=== PATIENT | male | born 1970 | race African-American/Black ===

== ENCOUNTER 2016-05-27 09:53 | Emergency (ER) | payer OTHER ==
[~2016-05-27] VITALS: Ht 182.9 cm; Wt 120.0 kg
[~2016-05-27 09:53] MED LIST: ERYT.5%O LEFT EYE; Z.0.NO CURRENT MEDS
[2016-05-27 09:55] VITALS: BP 176/115; PULSE 66; RESP 12; TEMP 98; O2SAT 97
[2016-05-27] MEDS ORDERED: ASPI81TA81 (10:56)
[2016-05-27] MEDS ORDERED: ASPI-110 PO (10:56)
[2016-05-27] MEDS ORDERED: HYDR12.57 PO (10:56)
[2016-05-27] MEDS ORDERED: LISI40TA PO (10:56)
[2016-05-27] MEDS ORDERED: KETOROLAC TROMETHAMINE 60 MG/2 ML (IM) VIAL IM ONE (11:00)
[2016-05-27] MEDS ORDERED: INDO50CA PO (11:22)
--- NOTE | 2016-05-27 11:22 | PD ---
HPI Chief Complaint: Injury Time Seen by Provider: 10:45 Travel History International Travel<30 days: No Contact w/Intl Traveler<30days: No Traveled to known affect area: No History of Present Illness HPI 45-year-old male with history of gout presents to the emergency room for evaluation of right ankle pain and swelling for the past 3 days. Denies trauma or injury. States it feels similar to, though slightly worse than, last time he had the symptoms. At that time it was in his left great toe. Pain is worsened with any range of motion or ambulation. Localized to the right medial malleolus. Denies paresthesias. Patient denies calf pain, fever, chills, nausea, and vomiting. Patient drinks beer daily. He ate shrimp on the day that the pain started. PFSH Past Medical History High Cholesterol: Yes Diminished Hearing: No Hypertension: Yes Tetanus Vaccination: Never Vaccinated Social History Alcohol Use: Yes (2-3 BEERS PER DAY) Tobacco Use: Yes (CIGARS) Substance Use: No Allergies-Medications (Allergen,Severity, Reaction): Coded Allergies: No Known Allergies (Verified , 05/27/16) Reported Meds & Prescriptions Reported Meds & Active Scripts Active Reported Aspirin 81 (Aspirin) 81 Mg Tabdr 81 Mg PO DAILY Aspir-81 (Aspirin) 81 Mg Tabdr Hydrochlorothiazide 12.5 Mg Cap 12.5 Mg PO DAILY Lisinopril 40 Mg Tab 40 Mg PO DAILY Review of Systems Except as stated in HPI: all other systems reviewed are Neg Physical Exam Narrative GENERAL: Well-nourished, well-developed male in no acute distress. Afebrile. Ambulatory with a limp. SKIN: Warm and dry. No erythema or ecchymosis. HEAD: Normocephalic. EYES: No scleral icterus. No injection or drainage. NECK: Supple, trachea midline. No JVD or lymphadenopathy. CARDIOVASCULAR: Regular rate and rhythm without murmurs, gallops, or rubs. RESPIRATORY: Breath sounds equal bilaterally. No accessory muscle use. EXTREMITY: Right ankle moderately tender to palpation over the medial malleolus. Full range of motion in all joints. Mild to moderate 2+ pitting edema. 2+ dorsalis pedis pulse. Data Data Last Documented VS Vital Signs Date Time Temp Pulse Resp B/P Pulse Ox O2 Delivery O2 Flow Rate FiO2 05/27/16 09:55 98.0 66 12 176/115 97 Room Air Orders Ketorolac Inj (Toradol Inj) (05/27/16 11:00) [facility] Medical Decision Making Medical Screen Exam Complete: Yes Emergency Medical Condition: Yes Medical Record Reviewed: Yes Differential Diagnosis Gout flareup versus sprain versus strain Narrative Course 45-year-old male with a history of podagra presents to the emergency room for evaluation of right ankle pain and swelling for the past 3 days. Denies trauma or injury. There is 2+ pitting edema and moderate tenderness palpation of the right medial ankle. No calf tenderness. Neurovascularly intact with 2+ dorsalis pedis pulse. No indication for x-ray imaging. Patient has full range of motion and there is no erythema or significantly increased warmth; no concern for septic arthritis. He drinks alcohol daily and ate shrimp on the day the pain began; likely gout flare. He was given Toradol in the emergency room. Discharged with indomethacin and told to follow up with primary care physician or return for worsening symptoms. He understands and agrees to plan. Diagnosis Primary Impression: Gout flare Qualified Code: M10.9 - Acute gout of right ankle, unspecified cause Referrals: Primary Care Physician Patient Instructions: General Instructions, Gout (ED) Additional Instructions: Rest and drink plenty of fluids. Take indomethacin with food as directed, as needed for pain. Apply ice to the affected area for 20 minutes at a time, as needed for pain and swelling. Follow-up with a primary care physician. Return to the emergency room for worsening symptoms. Med/Other Pt SpecificInfo: Prescription(s) given Disposition: 01 DISCHARGE HOME Condition: Stable Sultana Corona May 27, 2016 11:22
[2016-05-27 12:02] VITALS: BP 166/88
== END 2016-05-27 12:03 | disposition home or self-care (01) ==
LOC: NEPB 09:53
DX: M10.9 Gout, unspecified (principal); E78.00 Pure hypercholesterolemia, unspecified; I10 Essential (primary) hypertension; F10.20 Alcohol dependence, uncomplicated; F17.290 Nicotine dependence, other tobacco product, uncomplicated
CPT/HCPCS: 96372; 99283; J1885

== ENCOUNTER 2016-06-09 11:16 | Observation (INO) | payer OTHER ==
[~2016-06-09] VITALS: Ht 182.9 cm; Wt 120.0 kg
[~2016-06-09 11:16] MED LIST changes: +ASPI-110 PO; +ASPI81TA81; -ERYT.5%O LEFT EYE; +HYDR12.57 PO; +INDO50CA PO; +LISI40TA PO; -Z.0.NO CURRENT MEDS
[2016-06-09 11:18] VITALS: BP 123/75; PULSE 75; RESP 16; TEMP 99; O2SAT 97
--- NOTE | 2016-06-09 12:53 | PD ---
HPI Chief Complaint: Allergic/Adverse Reaction Time Seen by Provider: 12:50 Travel History International Travel<30 days: No Contact w/Intl Traveler<30days: No Traveled to known affect area: No History of Present Illness HPI 45-year-old male with history of hypertension presents to the emergency department for evaluation of swelling of his lips and face for 1 day. Patient states the last night when he went to bed he had no swelling at all and when he woke up this morning his lips and the lower half of his face were swollen. He denies any pain in his face or pruritus. He denies any swelling of his tongue, difficulty swallowing, difficulty breathing. He does admit to taking a new medication last week prescribed for gout, indomethacin. Otherwise the patient takes lisinopril/HCTZ for high blood pressure. He has been taking lisinopril for 2 years, states he initially did have a dry cough associated with the medication that resolved. Denies any other changes in diet, medications or topical products. The patient also complains of right hand swelling and pain. States that 4 days ago he was using a miter saw and accidentally cut the dorsal aspect of his right hand less than 1 cm. States that it was a small cut and he assumed it would heal on its own. States that he has had worsening swelling, redness and pain in the hand since this occurred. He absolutely denies any injury or trauma secondary to punching someone in the face. States that last night he began having drainage from the wound as well. States that he had subjective fever yesterday and body aches. Denies cough or cold symptoms, chest pain, shortness of breath, lightheadedness, dizziness, numbness or tingling, weakness. No other complaints. Unsure of last tetanus vaccination. PFSH Past Medical History High Cholesterol: Yes Diminished Hearing: No Hypertension: Yes Social History Alcohol Use: Yes (2-3 BEERS PER DAY) Tobacco Use: Yes (CIGARS) Substance Use: No Allergies-Medications (Allergen,Severity, Reaction): Coded Allergies: No Known Allergies (Verified , 06/09/16) Reported Meds & Prescriptions Reported Meds & Active Scripts Active Indomethacin 50 Mg Cap 50 Mg PO Q8HR 7 Days Take with food, milk, or antacids to decrease stomach adverse effects. Reported Aspirin 81 (Aspirin) 81 Mg Tabdr 81 Mg PO DAILY Hydrochlorothiazide 12.5 Mg Cap 12.5 Mg PO DAILY Lisinopril 40 Mg Tab 40 Mg PO DAILY Review of Systems Except as stated in HPI: all other systems reviewed are Neg Physical Exam Narrative GENERAL: Well-nourished and well-developed pleasant male patient in no acute distress. SKIN: Warm and dry. HEAD: Normocephalic and atraumatic. EYES: No injection, drainage, or hyphema noted. PERRLA. EOMI. ENT: No nasal drainage noted. There is swelling of the lips, specifically the lower lip. Mild swelling of the cheeks. No swelling of the tongue. Oropharynx is clear and the airway is patent. Patient handling secretions without difficulty. NECK: Supple and the trachea is midline. CARDIOVASCULAR: Regular rate and rhythm. RESPIRATORY: Breath sounds are equal bilaterally with no accessory muscle use, wheezing, rhonchi, or crackles. GASTROINTESTINAL: Abdomen is soft, non-tender, and nondistended. EXTREMITY: Right hand with less than 1 cm superficial laceration to dorsal aspect overlying second MCP. There is a small amount of purulent drainage expelled from this superficial laceration. There is surrounding erythema, warmth and swelling. Full range of motion in all joints. No joint swelling/ injury. Normal opposition of thumb. Distal extremity neurovascularly intact with intact two point discrimination. MUSCULOSKELETAL: No obvious deformities, swelling, cyanosis, or ecchymosis is present throughout the upper and lower extremities. Patient has full range of motion without any signs of neurovascular compromise. NEUROLOGICAL: Awake, alert, and oriented. Normal speech and gait. Cranial nerves are grossly intact. Data Data Last Documented VS Vital Signs Date Time Temp Pulse Resp B/P Pulse Ox O2 Delivery O2 Flow Rate FiO2 06/09/16 13:01 68 16 133/78 98 06/09/16 11:18 99.0 Orders Complete Blood Count With Diff (06/09/16 12:48) Comprehensive Metabolic Panel (06/09/16 12:48) Lactic Acid Sepsis Protocol (06/09/16 12:48) Blood Culture (06/09/16 12:48) Ecg Monitoring (06/09/16 12:48) Iv Access Insert/Monitor (06/09/16 12:48) Oximetry (06/09/16 12:48) C-Reactive Protein (Crp) (06/09/16 12:48) Westergren Sedimentation Rate (06/09/16 12:48) Diphenhydramine Inj (Benadryl Inj) (06/09/16 13:00) Methylprednisolone So Succ Inj (Solumedr (06/09/16 13:00) Famotidine Inj (Pepcid Inj) (06/09/16 13:00) Sodium Chloride 0.9% Flush (Ns Flush) (06/09/16 13:00) Hand, Complete (Omi1uud) (06/09/16 12:48) Wound Culture And Gram Stain (06/09/16 12:53) Tetanus/Diphtheria Tox Adult (Tetanus/Di (06/09/16 13:00) Ct Hand W Iv Contrast (06/09/16 ) Vancomycin Inj (Vancomycin Inj) (06/09/16 14:00) Piperacil-Tazo 4.5 Gm Premix (Zosyn 4.5 (06/09/16 14:00) Sodium Chlor 0.9% 1000 Ml Inj (Ns 1000 M (06/09/16 13:50) Iohexol 350 Inj (Omnipaque 350 Inj) (06/09/16 14:50) Admit Order (Ed Use Only) (06/09/16 15:46) Labs Laboratory Tests Test 06/09/16 12:55 White Blood Count 13.9 TH/MM3 Red Blood Count 5.10 MIL/MM3 Hemoglobin 13.9 GM/DL Hematocrit 42.3 % Mean Corpuscular Volume 82.9 FL Mean Corpuscular Hemoglobin 27.3 PG Mean Corpuscular Hemoglobin 32.9 % Concent Red Cell Distribution Width 13.9 % Platelet Count 295 TH/MM3 Mean Platelet Volume 7.7 FL Neutrophils (%) (Auto) 78.5 % Lymphocytes (%) (Auto) 13.1 % Monocytes (%) (Auto) 7.6 % Eosinophils (%) (Auto) 0.5 % Basophils (%) (Auto) 0.3 % Neutrophils # (Auto) 10.9 TH/MM3 Lymphocytes # (Auto) 1.8 TH/MM3 Monocytes # (Auto) 1.1 TH/MM3 Eosinophils # (Auto) 0.1 TH/MM3 Basophils # (Auto) 0.0 TH/MM3 CBC Comment DIFF FINAL Differential Comment Erythrocyte Sedimentation Rate 41 mm/hr Sodium Level 135 MEQ/L Potassium Level 3.4 MEQ/L Chloride Level 97 MEQ/L Carbon Dioxide Level 29.2 MEQ/L Anion Gap 9 MEQ/L Blood Urea Nitrogen 15 MG/DL Creatinine 1.26 MG/DL Estimat Glomerular Filtration 74 ML/MIN Rate Random Glucose 91 MG/DL Lactic Acid Level 0.9 mmol/L Calcium Level 8.8 MG/DL Total Bilirubin 0.6 MG/DL Aspartate Amino Transf 23 U/L (AST/SGOT) Alanine Aminotransferase 41 U/L (ALT/SGPT) Alkaline Phosphatase 91 U/L C-Reactive Protein 14.00 MG/DL Total Protein 8.9 GM/DL Albumin 3.6 GM/DL [facility] Medical Decision Making Medical Screen Exam Complete: Yes Emergency Medical Condition: Yes Differential Diagnosis Allergic reaction versus angioedema versus cellulitis versus abscess versus other Narrative Course 45-year-old male presents to the emergency department for 2 separate complaints right hand swelling and redness with drainage for 4 days and lip and face swelling for 1 day. Patient has a low-grade temperature of 99F, otherwise vital signs are stable. The hand does appear to be infected with a little bit of drainage. A wound culture was obtained and sent to the lab. The patient does have swelling of the lips and face however the airway is patent and he is having no drooling or difficulty breathing. I suspect the patient is having angioedema secondary to lisinopril. IV access is obtained, labs have been drawn and sent. Patient is given Benadryl 25 mg IV, Solu-Medrol 125 mg IV and Pepcid 50 mg IV. X-ray of the hand has been ordered and is pending. CBC shows an elderly white blood cell count 13.9. ESR is elevated at 41. CMP is unremarkable. CRP is elevated at 14. Lactic acid is 0.9. X-ray of the right hand is negative for any acute abnormalities. CT of the right hand with IV contrast shows soft tissue swelling with no fluid collection. Patient reassessed and the swelling in his lips has improved with the Benadryl, Solu-Medrol and Pepcid. Patient continues to have no swelling of the tongue or throat, no difficulty breathing or swallowing, airway is patent and he is handling secretions without difficulty. Patient will be admitted for IV antibiotics for right hand cellulitis and angioedema. I discussed the case with my attending physician Dr. Roberts Who is aware of the patients history, physical examination findings, and treatment plan. Physician Communication Physician Communication Patient was seen by Dr. Banuelos, hand surgeon, who agrees with IV antibiotics and requests hand to be elevated. No surgical intervention at this time. My attending physician Dr. Roberts spoke with Dr. Karey MORIN who agrees to admit the patient to his service. Diagnosis Primary Impression: Cellulitis of right hand Admitting Information Admitting Physician Requests: Admit Suzanne Conway Jun 09, 2016 12:53
[2016-06-09] MEDS ORDERED: FAMOTIDINE 20 MG/2 ML VIAL IV PUSH ONE (13:00)
[2016-06-09] MEDS ORDERED: SODIUM CHLORIDE 0.9% FLUSH 5 ML FLUSH IVF PRN (13:00)
[2016-06-09] MEDS ORDERED: TETANUS/DIPHTHERIA TOXOID ADULT 0.5 ML VIAL IM ONE (13:00)
[2016-06-09] MEDS ORDERED: methylPREDNISolone SOD SUCC 125 MG/2 ML VIAL IVP ONE (13:00)
[2016-06-09] MEDS ORDERED: diphenhydrAMINE HCL 50 MG/ML VIAL IVP ONE (13:00)
[2016-06-09 13:01] VITALS: BP 133/78; PULSE 68; RESP 16; O2SAT 98
[2016-06-09 13:20] LABS: AUTOMATED NEUTROPHIL # 10.9 TH/MM3 (1.8-7.7); BASOPHIL % 0.3 % (0.0-2.0); EOSINOPHIL # 0.1 TH/MM3 (0-0.4); EOSINOPHIL % 0.5 % (0.0-4.0); HEMATOCRIT 42.3 % (39.0-51.0); HEMO FLAGS DIFF FINAL; LYMPH % 13.1 % (9.0-44.0); LYMPHOCYTE # 1.8 TH/MM3 (1.0-4.8); MEAN CELL VOLUME 82.9 FL (80.0-100.0); MEAN CORPUSCULAR HEMOGLOBIN 27.3 PG (27.0-34.0); MEAN CORPUSCULAR HGB CONC 32.9 % (32.0-36.0); MONO % 7.6 % (0.0-8.0); NEUT % 78.5 % (16.0-70.0); PLATELET COUNT 295 TH/MM3 (150-450); RED CELL DISTRIBUTION WIDTH 13.9 % (11.6-17.2); WHITE BLOOD COUNT 13.9 TH/MM3 (4.0-11.0)
--- NOTE | 2016-06-09 13:29 | RADRPT ---
EXAM DATE/TIME: 06/09/2016 13:27 [facility] COMPARISON: No previous studies available for comparison. INDICATIONS : Pain and Swelling after patient accidentally cut back of Right hand, base of 2nd digit. MEDICAL HISTORY : None. SURGICAL HISTORY : None. ENCOUNTER: Initial ACUITY: 1 day PAIN SCORE: 5/10 LOCATION: Right Hand. FINDINGS: Three view examination of the right hand demonstrates no soft tissue swelling, dislocation, or fractu re. The carpal bones appear intact. The interphalangeal and metacarpophalangeal joints are intact. Bony mineralization is normal. CONCLUSION: Unremarkable examination of the right hand. Blayne Hernandez MD on June 09, 2016 at 13:28 Board Certified Radiologist. This report was verified electronically.
[2016-06-09 13:38] LABS: ANION GAP 9 MEQ/L (5-15); AST (GOT) 23 U/L (15-37); BICARBONATE 29.2 MEQ/L (21.0-32.0); BLOOD UREA NITROGEN 15 MG/DL (7-18); CHLORIDE 97 MEQ/L (98-107); GLOMERULAR FILTRATION RATE 74 ML/MIN (>89); POTASSIUM 3.4 MEQ/L (3.5-5.1); SODIUM (NA) 135 MEQ/L (136-145)
[2016-06-09 13:41] LABS: ALKALINE PHOSPHATASE 91 U/L (45-117); ALT (GPT) 41 U/L (12-78); TOTAL BILIRUBIN ADULT 0.6 MG/DL (0.2-1.0)
[2016-06-09] MEDS ORDERED: SODIUM CHLOR 0.9% 1000 ML INJ 1,000 ML IV SCH (13:50)
[2016-06-09] MEDS ORDERED: VANCOMYCIN INJ 1,000 MG in SODIUM CHLOR 0.9% 250 ML INJ 250 ML IV ONE (14:00)
[2016-06-09] MEDS ORDERED: PIPERACIL-TAZO 4.5 GM PREMIX 100 ML IV ONE (14:00)
--- NOTE | 2016-06-09 14:47 | RADRPT ---
EXAM DATE/TIME: 06/09/2016 14:25 [facility] COMPARISON: No previous studies available for comparison. INDICATIONS : Evaluate for abscess. IV CONTRAST: 92 cc Omnipaque 350 (iohexol) IV RADIATION DOSE: 5.47 CTDIvol (mGy) MEDICAL HISTORY : None SURGICAL HISTORY : None. ENCOUNTER: Initial ACUITY: 1 day PAIN SCALE: 4/10 LOCATION: Right hand TECHNIQUE: Volumetric scanning of the hand was performed. Using automated exposure control and adjustment of th e mA and/or kV according to patient size, radiation dose was kept as low as reasonably achievable to obtain optimal diagnostic quality images. FINDINGS: BONES: No evidence of fracture. Alignment is within normal limits. JOINTS: No evidence of joint narrowing or effusion. SOFT TISSUES: Muscles, tendons, and neurovascular structures are grossly unremarkable. No evidence of mass, organiz ed fluid collection, or foreign body. Significant soft tissue swelling of the dorsum of the hand CONCLUSION: Normal examination except for significant soft tissue swelling in the dorsum of the hand. Blayne Hernandez MD on June 09, 2016 at 14:44 Board Certified Radiologist. This report was verified electronically.
[2016-06-09] MEDS ORDERED: IOHEXOL 350 MG/ML 10 ML VIAL (for RAD DIAG) IV ONE (14:50)
[2016-06-09] MEDS ORDERED: NALOXONE HCL 0.4 MG/ML AMP IV PRN (15:45)
[2016-06-09] MEDS ORDERED: SODIUM CHLORIDE 0.9% FLUSH 5 ML FLUSH FLUSH PRN (15:45)
[2016-06-09 16:00] VITALS: BP 120/66; PULSE 67; RESP 16; O2SAT 99
[2016-06-09] MEDS ORDERED: Vancomycin Consult Pharmacy 1 EA XX SCH (16:00)
[2016-06-09] MEDS ORDERED: ACETAMINOPHEN/HYDROcodone 325 MG/7.5 MG TAB PO PRN (17:00)
[2016-06-09] MEDS ORDERED: ONDANSETRON HCL 4 MG/2 ML VIAL IVP PRN (17:00)
[2016-06-09] MEDS ORDERED: ACETAMINOPHEN 325 MG TAB PO PRN (17:00)
[2016-06-09] MEDS: PIPERACIL-TAZO 4.5 GM PREMIX 100 ML IV SCH ×2 (18:20→22:49)
[2016-06-09] MEDS: SODIUM CHLOR 0.9% 1000 ML INJ 1,000 ML IV SCH (18:21)
[2016-06-09 19:42] VITALS: BP 118/66; PULSE 71; RESP 21; TEMP 97.8; O2SAT 97
[2016-06-09] MEDS: FAMOTIDINE 20 MG TAB PO SCH (20:59)
[2016-06-09] MEDS: INDOMETHACIN 50 MG CAP PO SCH (20:59)
[2016-06-09] MEDS: SODIUM CHLORIDE 0.9% FLUSH 5 ML FLUSH FLUSH SCH (20:59)
[2016-06-09] MEDS ORDERED: methylPREDNISolone SOD SUCC 40 MG/1 ML VIAL IV PUSH SCH (21:00)
[2016-06-10] VITALS (9 sets, daily range): BP systolic 121–168; BP diastolic 67–98; PULSE 51–81; RESP 18–21; TEMP 96–99.5; O2SAT 96–99
[2016-06-10] MEDS: SODIUM CHLOR 0.9% 1000 ML INJ 1,000 ML IV SCH ×3 (02:00→22:58)
[2016-06-10] MEDS ORDERED: VANCOMYCIN INJ 1,250 MG in SODIUM CHLOR 0.9% 250 ML INJ 250 ML IV SCH (03:00)
[2016-06-10 04:19] LABS: AUTOMATED NEUTROPHIL # 13.6 TH/MM3 (1.8-7.7); BASOPHIL % 0.1 % (0.0-2.0); HEMATOCRIT 41.1 % (39.0-51.0); HEMO FLAGS DIFF FINAL; LYMPH % 6.7 % (9.0-44.0); MEAN CELL VOLUME 82.6 FL (80.0-100.0); MEAN CORPUSCULAR HEMOGLOBIN 27.5 PG (27.0-34.0); MEAN CORPUSCULAR HGB CONC 33.3 % (32.0-36.0); MONO % 2.3 % (0.0-8.0); NEUT % 90.9 % (16.0-70.0); PLATELET COUNT 284 TH/MM3 (150-450); RED BLOOD COUNT 4.97 MIL/MM3 (4.50-5.90)
[2016-06-10 04:50] LABS: BICARBONATE 27.8 MEQ/L (21.0-32.0); POTASSIUM 4.4 MEQ/L (3.5-5.1)
[2016-06-10] MEDS: PIPERACIL-TAZO 4.5 GM PREMIX 100 ML IV SCH ×4 (05:00→22:59)
[2016-06-10] MEDS: INDOMETHACIN 50 MG CAP PO SCH ×3 (05:41→21:53)
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
[2016-06-10] MEDS ORDERED: DEXAMETHASONE 4 MG TAB PO SCH (09:00)
[2016-06-10] MEDS: FAMOTIDINE 20 MG TAB PO SCH ×2 (09:36→21:53)
[2016-06-10] MEDS: SODIUM CHLORIDE 0.9% FLUSH 5 ML FLUSH FLUSH SCH ×2 (09:36→21:00)
[2016-06-10] MEDS: ASPIRIN EC 81 MG TABEC PO SCH (09:36)
[2016-06-10] MEDS: HYDROCHLOROTHIAZIDE 12.5 MG CAP PO SCH (09:36)
[2016-06-10] MEDS ORDERED: Vancomycin Consult Pharmacy 1 EA OTHER SCH (10:30)
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
[2016-06-11 01:05] VITALS: BP 151/78; PULSE 86; RESP 18; TEMP 98.4; O2SAT 97
[2016-06-11] MEDS ORDERED: PHARMACY ORDERED LAB XX ONE (02:45)
[2016-06-11] MEDS: PIPERACIL-TAZO 4.5 GM PREMIX 100 ML IV SCH ×2 (05:51→09:51)
[2016-06-11] MEDS: INDOMETHACIN 50 MG CAP PO SCH (05:51)
[2016-06-11 06:50] VITALS: BP 141/62; PULSE 68; RESP 18; TEMP 98.8; O2SAT 98
--- NOTE | 2016-06-11 08:17 | HHI.PR ---
Subjective Remarks right hand swelling improved, no drainage from laceration no erythema no fever no cp no sob no facial swelling Objective Objective Results - Vital Signs Date Time Temp Pulse Resp B/P Pulse Ox O2 Delivery O2 Flow Rate FiO2 06/11/16 06:50 98.8 68 18 141/62 98 06/11/16 01:05 98.4 86 18 151/78 97 06/10/16 20:00 60 06/10/16 19:20 97.8 69 18 161/98 96 06/10/16 19:19 53 06/10/16 16:00 99.5 57 20 160/93 96 06/10/16 12:00 96.0 60 20 139/76 97 I/O 06/10/16 06/10/16 06/10/16 06/11/16 06/11/16 06/11/16 07:00 15:00 23:00 07:00 15:00 23:00 Intake Total 720 ml Balance 720 ml Intake Oral 720 ml # Voids 3 3 # Bowel Movements 1 Result Diagram: 06/10/16 0401 06/10/16 0401 Imaging Last Impressions Hand X-Ray 06/09/16 1248 Signed Impressions: Service Date/Time: Thursday, June 09, 2016 13:27 - CONCLUSION: Unremarkable examination of the right hand. Blayne Hernandez MD Upper Extremity CT 06/09/16 0000 Signed Impressions: Service Date/Time: Thursday, June 09, 2016 14:25 - CONCLUSION: Normal examination except for significant soft tissue swelling in the dorsum of the hand. Blayne Hernandez MD Other Results Laboratory Tests Test 06/11/16 02:38 Vancomycin Level Trough 3.3 Date/Time Procedure Status Source Growth 06/09/16 14:46 Gram Stain - Final Resulted Wound Hand 06/09/16 14:46 Wound Culture - Preliminary Resulted Group A Beta Strep 06/09/16 13:00 Aerobic Blood Culture - Preliminary Resulted Blood Peripheral NO GROWTH IN 1 DAY 06/09/16 13:00 Anaerobic Blood Culture - Preliminary Resulted Blood Peripheral NO GROWTH IN 1 DAY ROS General: No: Fatigue, Weakness HEENT: No: Sore Throat, Dysphagia Cardiac: No: Chest Pain, Edema, Palpitations Pulmonary: No: Cough, SOB, Wheezing GI: No: Abdominal Pain, BM, Diarrhea, N/V /[employer]: No: Dysuria, Urgency Neuro/MS: Other (right hand swelling improved ), No: Lightheaded, Confusion Psych: No: Anxiety, Depression Skin: No: Itching, Rash Physical Exam Physical Exam GENERAL: This is a well-nourished, well-developed patient, in no apparent distress. SKIN: No rashes, ecchymoses or lesions. Cool and dry. HEAD: Atraumatic. Normocephalic. No temporal or scalp tenderness. EYES: Pupils equal round and reactive. Extraocular motions intact. No scleral icterus. No injection or drainage. ENT: Nose without bleeding, purulent drainage or septal hematoma. Throat without erythema, tonsillar hypertrophy or exudate. Uvula midline. Airway patent. NECK: Trachea midline. No JVD or lymphadenopathy. Supple, nontender, no meningeal signs. CARDIOVASCULAR: Regular rate and rhythm without murmurs, gallops, or rubs. RESPIRATORY: Clear to auscultation. Breath sounds equal bilaterally. No wheezes , rales, or rhonchi. GASTROINTESTINAL: Abdomen soft, non-tender, nondistended. No hepato-splenomegaly , or palpable masses. No guarding. MUSCULOSKELETAL: Right hand with mild swelling, has a 1 cm laceration to dorsal aspect overlying second MCP. No purulent drainage noted. Minimal erythema to surrounding area. Intact sensation right hand, right radial pulse 2+, able to make fist. Other extremities without clubbing, cyanosis, or edema. No joint tenderness, effusion, or edema noted. No calf tenderness. Negative Homans sign bilaterally. NEUROLOGICAL: Awake and alert. Cranial nerves II through XII intact. Motor and sensory grossly within normal limits. Five out of 5 muscle strength in all muscle groups. Normal speech. Urinary Catheter: No Vascular Central Line Catheter: No A/P Diagnosis: (1) Cellulitis of right hand (2) Hypertension (3) Facial swelling (4) Adverse reaction to LUKE inhibitor drug (5) Acute renal insufficiency Assessment and Plan 45 year AA presented to ED with lower facial swelling, poss. secondary to Lisinopril use. -Lisinopril has been discontinued, pt. instructed to stop taking medication at home -symptoms improved, dc Decadron -Continue Pepcid, Benadryl PRN -Monitor for any stridor, facial swelling, respiratory difficulty-has remained stable overnight. Right hand cellulitis -continue with IV antibiotics -Culture group A beta strep -Keep right arm elevated -Consulted Dr. Banuelos-input appreciated. No surgical intervention required, recommends wash hand 4-5 x times a day, dry dressing, PO abx. Acute renal insufficiency, received Vanco, was on LUKE -Continue IVF -Stopped Vancomycin -BMP today, pending -Avoid nephrotoxic agents, NSAIDs, LUKE HTN, stable -continue HCTZ Hx of gout -continue Indocin SCD for DVT prophylaxis Pepcid for GI prophylaxis BMP pending plan to dc this afternoon on oral abx D/W RN D/W pt. D/W Dr. Shetty This patient was seen by myself and Dr. Eden, this note is written on his behalf. Problem Qualifiers (1) Hypertension: Qualified Code: I10 - Essential hypertension (2) Adverse reaction to LUKE inhibitor drug: Qualified Code: T46.4X5S - Adverse reaction to LUKE inhibitor drug, sequela Virginie Parra Jun 11, 2016 08:17
--- NOTE | 2016-06-11 08:21 | HHI.DCPOC ---
Discharge Care Plan Diagnosis: (1) Acute renal insufficiency (2) Hypertension (3) Facial swelling (4) Cellulitis of right hand (5) Adverse reaction to LUKE inhibitor drug Your Health Problems Are: Skin Breakdown Inflammation Goals to Promote Your Health * To prevent worsening of your condition and complications * To maintain your health at the optimal level Directions to Meet Your Goals Take your medications as prescribed Follow your dietary instruction Follow activity as directed Keep your appointments as scheduled Take your immunizations and boosters as scheduled If your symptoms worsen call your PCP, if no PCP go to Urgent Care Center or Emergency Room Smoking is Dangerous to Your Health. Avoid second hand smoke Call the 24-hour hour crisis hotline for domestic abuse at Virginie Parra Jun 11, 2016 08:20
--- NOTE | 2016-06-11 09:24 | HHI.PR ---
Subjective Remarks The patient has no complaints this morning Objective Vital Signs Date Time Temp Pulse Resp B/P Pulse Ox O2 Delivery O2 Flow Rate FiO2 06/11/16 06:50 98.8 68 18 141/62 98 06/11/16 01:05 98.4 86 18 151/78 97 06/10/16 20:00 60 06/10/16 19:20 97.8 69 18 161/98 96 06/10/16 19:19 53 06/10/16 16:00 99.5 57 20 160/93 96 06/10/16 12:00 96.0 60 20 139/76 97 I/O 06/10/16 06/10/16 06/10/16 06/11/16 06/11/16 06/11/16 07:00 15:00 23:00 07:00 15:00 23:00 Intake Total 720 ml Balance 720 ml Intake Oral 720 ml # Voids 3 3 # Bowel Movements 1 Result Diagram: 06/10/16 0401 06/10/16 0401 Objective Remarks Examination of his right hand reveals the wound is completely healed there is no sign of any active infection. He has full active range of motion. No erythema, cellulitis, edema. Full active range of motion. No drainage Is awake alert and oriented 3 Is very pleasant as always Assessment and Plan Problem List: (1) Cellulitis of right hand Status: Resolved Plan: Oral antibiotics 5 days on discharge Wash and dry hands with soap and water regularly Papo Banuelos III, MD Jun 11, 2016 09:24
[2016-06-11 09:31] VITALS: BP 156/100; PULSE 53; RESP 18; TEMP 96.6; O2SAT 95
[2016-06-11 09:35] LABS: BICARBONATE 28.8 MEQ/L (21.0-32.0); POTASSIUM 3.2 MEQ/L (3.5-5.1)
[2016-06-11] MEDS: ASPIRIN EC 81 MG TABEC PO SCH (09:51)
[2016-06-11] MEDS: HYDROCHLOROTHIAZIDE 12.5 MG CAP PO SCH (09:51)
[2016-06-11] MEDS: FAMOTIDINE 20 MG TAB PO SCH (09:51)
[2016-06-11] MEDS: SODIUM CHLORIDE 0.9% FLUSH 5 ML FLUSH FLUSH SCH (09:52)
[2016-06-11] MEDS: SODIUM CHLOR 0.9% 1000 ML INJ 1,000 ML IV SCH (09:52)
[2016-06-11] MEDS ORDERED: CEPH-460 PO (10:22)
[2016-06-11] MEDS ORDERED: AMLO5 PO (10:24)
[2016-06-11] MEDS ORDERED: POTASSIUM CHLORIDE 8 MEQ CONTROLLED RELEASE TAB PO ONE (10:45)
[2016-06-11 11:27] VITALS: PULSE 54
== END 2016-06-11 12:24 | disposition home or self-care (01) ==
LOC: NEPA 11:16 → NEDA 15:47 → UNDOADMIN 15:47 → NEDA 18:18 → NEPFCDU 18:18 → NEDA 06-10 12:59 → INTOOBSV 06-10 12:59 → NEPFCDU 06-10 12:59
PROVIDERS: ADMIT Specialist; ATTEND Specialist
DX: L03.113 Cellulitis of right upper limb (principal); S61.411A Laceration without foreign body of right hand, initial encounter; B95.0 Streptococcus, group A, as the cause of diseases classified elsewhere; T46.4X5A Adverse effect of angiotensin-converting-enzyme inhibitors, initial encounter; N28.9 Disorder of kidney and ureter, unspecified; T78.3XXA Angioneurotic edema, initial encounter; E78.00 Pure hypercholesterolemia, unspecified; M10.9 Gout, unspecified; I10 Essential (primary) hypertension; F17.290 Nicotine dependence, other tobacco product, uncomplicated; W27.0XXA Contact with workbench tool, initial encounter; Z79.82 Long term (current) use of aspirin
CPT/HCPCS: 73130; 73201; 80048; 80053; 80202; 83605; 85025; 85652; 86140; 87040; 87070; 87205; 90471; 90714; 96365; 96367; 96375; 99285; G0378; J1200; J2543; J2920; J2930; J3370; J7030; J7050; J8540; Q9967